=== PATIENT | female | born 1940 | race Caucasian/White ===

== ENCOUNTER 2017-11-28 16:01 | Emergency (ER) | payer MEDICARE ==
[2017-11-28] MEDS ORDERED: Ondansetron ODT TAB* 4 MG PO ONE (16:31)
[2017-11-28 17:43] LABS: ABS Basophils 0.1 10^3/ul (0-0.2); ABS Eosinophils 0.3 10^3/ul (0-0.6); ABS Lymphocytes 2.3 10^3/ul (1.0-4.8); ABS Monocytes 0.5 10^3/ul (0-0.8); ABS Neutrophils 4.4 10^3/ul (1.5-7.7); ABS Nucleated RBC 0 10^3/ul; Eosinophil % 3.6 % (0-6); Hematocrit 37 % (35-47); Lymphocyte % 30.1 % (25-47); Mean Corpuscular HGB Conc 35 g/dl (31-36); Mean Corpuscular Hemoglobin 31 pg (27-31); Mean Corpuscular Volume 88 fL (80-97); Mean Platelet Volume 8.5 um3 (7.4-10.4); Nucleated Red Blood Cells % 0.1; Platelet Count 276 10^3/ul (150-450); Red Blood Count 4.24 10^6/ul (4.0-5.4); Red Cell Distribution Width 14 % (10.5-15); White Blood Count 7.5 10^3/ul (3.5-10.8)
--- NOTE | 2017-11-28 17:50 | RAD ---
Indication: Confusion, memory loss. CT of the brain was performed without IV contrast. Ventricular structures are midline. No midline shift is noted. The extra-axial spaces are unremarkable. There is no evidence of intracranial mass or no other high or low density lesions are identified. Mastoid air cells and paranasal sinuses are otherwise unremarkable. IMPRESSION: No intracranial mass or hemorrhage is noted.
[2017-11-28 17:53] LABS: INR 0.97 (0.77-1.02)
[2017-11-28 18:01] LABS: EGFR Non-African American 70.8 (>60)
[2017-11-28 18:27] LABS: Urine Appearance Clear; Urine Blood Negative (Negative); Urine Color Straw; Urine Ketones Negative (Negative); Urine Protein Negative (Negative); Urine Specific Gravity 1.004 (1.010-1.030); Urine Urobilinogen Negative (Negative)
[2017-11-28 18:59] VITALS: BP 137/68
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
== END 2017-11-28 18:57 | disposition home or self-care (01) ==
LOC: ED 16:01
DX: R41.82 Altered mental status, unspecified (principal); I10 Essential (primary) hypertension; R11.0 Nausea; E11.9 Type 2 diabetes mellitus without complications; Z79.84 Long term (current) use of oral hypoglycemic drugs; E03.9 Hypothyroidism, unspecified; J45.909 Unspecified asthma, uncomplicated; G43.909 Migraine, unspecified, not intractable, without status migrainosus; F41.9 Anxiety disorder, unspecified; Z88.0 Allergy status to penicillin; Z88.8 Allergy status to other drugs, medicaments and biological substances; Z82.49 Family history of ischemic heart disease and other diseases of the circulatory system; Z80.3 Family history of malignant neoplasm of breast
CPT/HCPCS: 36415; 70450; 80053; 80307; 80320; 81003; 83605; 84484; 85025; 85610; 85730; 93005; 99283; A9270-GY; G0480

== ENCOUNTER 2017-12-07 21:56 | Inpatient (IN) | payer MEDICARE ==
[2017-12-07] MEDS ORDERED: NS 0.9% 1000 ML* 1,000 ML IV ONE (22:49)
[2017-12-07 23:02] LABS: ABS Basophils 0.1 10^3/ul (0-0.2); ABS Eosinophils 0.4 10^3/ul (0-0.6); ABS Monocytes 0.7 10^3/ul (0-0.8); ABS Neutrophils 5.2 10^3/ul (1.5-7.7); ABS Nucleated RBC 0 10^3/ul; Eosinophil % 4.3 % (0-6); Hematocrit 37 % (35-47); Hemoglobin 12.8 g/dl (12.0-16.0); Lymphocyte % 31.9 % (25-47); Mean Corpuscular HGB Conc 35 g/dl (31-36); Mean Corpuscular Hemoglobin 30 pg (27-31); Mean Corpuscular Volume 88 fL (80-97); Mean Platelet Volume 8.7 um3 (7.4-10.4); Nucleated Red Blood Cells % 0; Platelet Count 252 10^3/ul (150-450); Red Blood Count 4.23 10^6/ul (4.00-5.40); Red Cell Distribution Width 14 % (10.5-15); White Blood Count 9.4 10^3/ul (3.5-10.8)
[2017-12-07] MEDS: NS 0.9% 1000 ML* 1,000 ML IV SCH (23:05)
[2017-12-07 23:19] LABS: EGFR Non-African American 90.2 (>60)
--- NOTE | 2017-12-07 23:23 | ED ---
Substance Abuse/Use - HPI Summary HPI Summary: Patient with a history of undiagnosed chronic memory loss starting this year, was brought in by wnrpnpcy-ox-glv for having taken 4-5 days of her mid day dose of metformin 500 mg and amlodipine 10 mg at 8:30 PM tonight. Patient lives alone and her meds are usually administered by czdahiwq-sg-svf. Daughter-in- law states she gave the patient her daily a.m. and midday meds today, and then came back to the house to discover the patient had taken the next 4-5 days of her midday dose medications. Patient herself has no complaints at this time other than feeling tired. Denies SI. - History Of Current Complaint Chief Complaint: EDOverdose Stated Complaint: POSSIBLE OVERDOSE Time Seen by Provider: 12/07/17 22:34 Hx Obtained From: Patient, Family/Open Winder Hx From Patient Unobtainable Due To: Other Ingestion History: Type/Name Of Drug, Amount Ingested, Approximate Time Of Ingestion Overdose Characteristics: Oral - Allergies/Home Medications Allergies/Adverse Reactions: Allergies Allergy/AdvReac Type Severity Reaction Status Date / Time Penicillins Allergy GI Upset Verified 12/07/17 22:16 providone(betatdine) Allergy Rash Uncoded 12/07/17 22:16 Home Medications: Home Medications LevoCETirizine TAB (NF) [Xyzal TAB (NF)] 5 mg PO QPM 12/07/17 [History Confirmed 12/07/17] PMH/Surg Hx/FS Hx/Imm Hx Endocrine/Hematology History: Reports: Hx Diabetes, Hx Thyroid Disease - Hypothyroid Denies: Hx Anticoagulant Therapy Cardiovascular History: Reports: Hx Hypertension Denies: Hx Myocardial Infarction, Hx Pacemaker/ICD Respiratory History: Reports: Hx Asthma, Hx Pneumonia Sensory History: Reports: Hx Contacts or Glasses Denies: Hx Hearing Aid Opthamlomology History: Reports: Hx Contacts or Glasses Neurological History: Reports: Hx Migraine, Other Neuro Impairments/Disorders - vertigo, PTSD (per daughter in law) Denies: Hx CVA, Hx Headaches, Hx Peripheral Neuropathy, Hx Transient Ischemic Attacks (TIA) Psychiatric History: Reports: Hx Anxiety Denies: Hx Depression, Hx Panic Disorder - Surgical History Surgery Procedure, Year, and Place: 1963- . BENIGN TUMOR REMOVED- RIGHT BREAST. 2000- GALLBLADDER. BIOPSY OF GROWTH IN GROIN. TUBAL LIGATION Hx Anesthesia Reactions: No - Immunization History Date of Tetanus Vaccine: within last 10 years Date of Influenza Vaccine: 2014 Infectious Disease History: No Infectious Disease History: Denies: Traveled Outside the [place] in Last 30 Days - Family History Known Family History: Positive: Cardiac Disease - father, Other - breast CA Family History: No FHx of malignant hypothermia - Social History Lives: Alone Alcohol Use: None Hx Substance Use: No Substance Use Type: Reports: None Hx Tobacco Use: No Smoking Status (MU): Never Smoked Tobacco Review of Systems Positive: Fatigue Eyes: Negative ENT: Negative Cardiovascular: Negative Respiratory: Negative Gastrointestinal: Negative Genitourinary: Negative Musculoskeletal: Negative Skin: Negative Neurological: Negative Psychological: Normal All Other Systems Reviewed And Are Negative: Yes Physical Exam - Summary Physical Exam Summary: Patient alert, responsive questions appropriately. No apparent distress. Triage Information Reviewed: Yes Vital Signs On Initial Exam: Initial Vitals Temp Pulse Resp BP Pulse Ox 96.9 F 73 15 145/69 98 12/07/17 21:58 12/07/17 21:58 12/07/17 21:58 12/07/17 21:58 12/07/17 21:58 Vital Signs Reviewed: Yes Appearance: Positive: Well-Appearing Skin: Positive: Warm Head/Face: Positive: Normal Head/Face Inspection Eyes: Positive: Normal Neck: Positive: Supple Respiratory/Lung Sounds: Positive: Clear to Auscultation Cardiovascular: Positive: Normal Abdomen Description: Positive: Nontender Musculoskeletal: Positive: Normal Neurological: Positive: Normal Psychiatric: Positive: Normal AVPU Assessment: Alert - [place] Coma Scale Best Eye Response: 4 - Spontaneous Best Motor Response: 6 - Obeys Commands Best Verbal Response: 5 - Oriented Coma Scale Total: 15 Diagnostics - Vital Signs Vital Signs Temp Pulse Resp BP Pulse Ox 12/07/17 22:53 70 12 126/63 95 12/07/17 22:23 74 13 143/70 97 12/07/17 21:58 96.9 F 73 15 145/69 98 - Laboratory Lab Results: Lab Results 12/07/17 12/07/17 Range/Units 22:32 22:50 WBC 9.4 (3.5-10.8) 10^3/ul RBC 4.23 (4.00-5.40) 10^6/ul Hgb 12.8 (12.0-16.0) g/dl Hct 37 (35-47) % MCV 88 (80-97) fL MCH 30 (27-31) pg MCHC 35 (31-36) g/dl RDW 14 (10.5-15) % Plt Count 252 (150-450) 10^3/ul MPV 8.7 (7.4-10.4) um3 Neut % (Auto) 55.2 (38-83) % Lymph % (Auto) 31.9 (25-47) % Amador % (Auto) 7.7 H (0-7) % Eos % (Auto) 4.3 (0-6) % Baso % (Auto) 0.9 (0-2) % Absolute Neuts (auto) 5.2 (1.5-7.7) 10^3/ul Absolute Lymphs (auto) 3.0 (1.0-4.8) 10^3/ul Absolute Monos (auto) 0.7 (0-0.8) 10^3/ul Absolute Eos (auto) 0.4 (0-0.6) 10^3/ul Absolute Basos (auto) 0.1 (0-0.2) 10^3/ul Absolute Nucleated RBC 0 10^3/ul Nucleated RBC % 0 POC Glucose (mg/dL) 84 (70-100) mg/dL Result Diagrams: 12/07/17 22:50 12/07/17 22:50 Lab Statement: Any lab studies that have been ordered have been reviewed, and results considered in the medical decision making process. - EKG 1 Cardiac Rate: NL EKG Rhythm: Sinus Rhythm ST Segment: Normal Ectopy: None Course/Dx - Course Course Of Treatment: Patient with a history of undiagnosed chronic memory loss starting this year, was brought in by mamvmhfb-lk-pwm for having taken 4-5 days of her mid day dose of metformin 500 mg and amlodipine 10 mg at 8:30 PM tonight. Patient lives alone and her meds are usually administered by daughter- in-law. Lewywjwk-rg-rtf states she gave the patient her daily a.m. and midday meds today, and then came back to the house to discover the patient had taken the next 4-5 days of her midday dose medications. Patient herself has no complaints at this time other than feeling tired. Denies SI. Patient alert, responsive questions appropriately. No apparent distress. Vital signs within normal limits and stable. Poison control consulted and recommends admission for 24-hour observation, repeat labs and EKG every 6 hours. - Diagnoses Provider Diagnoses: Accidental medication overdose - Physician Notifications Discussed Care Of Patient With: Lorraine Melendez Time Discussed With Above Provider: 23:29 Instructed by Provider To: Admit As Observation Discharge - Sign-Out/Discharge Documenting (check all that apply): Discharge/Admit/Transfer - Discharge Plan Condition: Stable Disposition: ADMITTED TO [facility] Referrals: Ulises BANGURA,Fernanda Singh [Primary Care Provider] - - Billing Disposition and Condition Condition: STABLE Disposition: Admitted to [facility]
[2017-12-07 23:41] LABS: Urine Appearance Clear; Urine Blood Negative (Negative); Urine Color Colorless; Urine Ketones Negative (Negative); Urine Protein Negative (Negative); Urine Specific Gravity 1.002 (1.010-1.030); Urine Urobilinogen Negative (Negative)
[2017-12-07] MEDS ORDERED: Acetaminophen TAB* 325 MG PO PRN (23:59)
[2017-12-07] MEDS ORDERED: Docusate CAP* 100 MG PO PRN (23:59)
[2017-12-07] MEDS ORDERED: Al Hydrox/Mg Hydrox/Simet LIQ* 30 ML UDC PO PRN (23:59)
[2017-12-07] MEDS ORDERED: Senna TAB PO PRN (23:59)
[2017-12-07] MEDS ORDERED: Ondansetron 40 MG VIAL* 2 MG/ML 20 ML VIAL IV PRN (23:59)
[2017-12-08] MEDS ORDERED: Dextrose 50% Syringe 50 ML* 25 GM/50 ML SYRINGE IV PUSH PRN (00:17)
[2017-12-08] MEDS: Mirtazapine TAB* 15 MG PO SCH ×2 (01:26→19:58)
[2017-12-08] MEDS: NS 0.9% 1000 ML* 1,000 ML IV SCH ×3 (01:26→17:13)
[2017-12-08] MEDS ORDERED: Magnesium Oxide TAB* 400 MG PO ONE (01:52)
[2017-12-08] MEDS ORDERED: NS 0.9% 1000 ML* 1,000 ML IV ONE (03:55)
--- NOTE | 2017-12-08 04:10 | HP ---
CC: Fernanda Montgomery MD * HISTORY AND PHYSICAL: DATE OF ADMISSION: 12/07/17 TIME OF EVALUATION: 2300. PRIMARY CARE PHYSICIAN: Fernanda Montgomery MD CHIEF COMPLAINT: Overdose. HISTORY OF PRESENT ILLNESS: This is a 77-year-old female with a past medical history of dementia who presented to the emergency room after taking 4 days' worth of several of her medications. The son and daughter are at the bedside, who provide the history. They states that she has been on a decline with her mental status and cognition and she is being evaluated for dementia. She has an appointment in December at [facility] to get further evaluated for dementia. The fuvxzxwz-jh-mkz has been staying with her and helping her with her meals and supervision. The slmbkxda-vw-zyv and son went to go to grocery store and when they returned, the patient had locked them out and they noted that 4 days' worth of her midday pills were gone. The patient states she got confused and she thought she needed to take them. It appears that the patient took 5 tablets of 75 mcg of levothyroxine, 4 tabs of 850 mg of metformin and 4 tabs of 5 mg of amlodipine. Poison Control was called and they recommended observation admission. The patient denies any pain. She denies any shortness of breath, no lightheadedness, no nausea, vomiting, diarrhea. The patient states she did not realize she took so many. The qxzrjlnt-sa-ieh states that she has been doing really well with the medicines and keeping track of them, they did not think that this would occur. The patient is not able to express her needs, but she does not have incontinence. She has been losing weight with decrease in appetite. No falls. She ambulates independently. Recent changes in her medications were she was started on Xyzal on 12/05/17 for allergies and postnasal drip. In the emergency room, the patient had labs, EKG and was referred to the hospitalist service for further evaluation. PAST MEDICAL HISTORY: Cataracts, dementia, hypothyroidism, vertigo, PTSD, diabetes, hyperlipidemia, GERD, allergies, asthma. PAST SURGICAL HISTORY: , cholecystectomy and tubal ligation. MEDICATIONS: 1. Metformin 850 mg p.o. t.i.d. with meals. 2. Amlodipine 10 mg p.o. daily. 3. Januvia 100 mg p.o. daily. 4. Zoloft 50 mg p.o. daily. 5. Omeprazole 40 mg p.o. daily. 6. Singulair 2 mg p.o. daily. 7. Remeron 30 mg p.o. at bedtime. 8. Metoprolol 50 mg p.o. b.i.d. 9. Synthroid 75 mcg daily in the morning. 10. Xyzal 5 mg p.o. in the evening. 11. Diazepam 10 mg p.o. 4 times a day as needed. 12. Fiorinal 1 cap daily as needed. 13. Lipitor 10 mg daily. ALLERGIES: PENICILLIN and Betadine. FAMILY HISTORY: Reviewed and noncontributory. SOCIAL HISTORY: The patient lives normally alone, but her mocjtnru-fm-lnu has been staying with her for the past several weeks due to her increase in confusion and cognitive decline. No history of smoking, alcohol or illicit drug use. Her healthcare proxy is her son, Nitish Crenshaw. When addressed code status, they were not ready to discuss this. I gave them the MOLST form that they are going to review with the family and the primary care provider. REVIEW OF SYSTEMS: A 14-point review of systems as mentioned in the HPI, otherwise negative. PHYSICAL EXAMINATION GENERAL: No acute distress. Resting comfortably with her son and daughter-in- law at the bedside. VITAL SIGNS: Temp 96.9, pulse rate 67, respiratory rate 12, oxygen saturation 95 % on room air, blood pressure 145/62. HEENT: Head normocephalic. Pupils are equal and reactive, anicteric. Oropharynx: Mucous membranes are moist. RESPIRATORY: Clear to auscultation. No wheezing, rhonchi or rales. CARDIAC: Regular rate and rhythm. Soft systolic murmur heard throughout. ABDOMEN: Soft, nontender, nondistended. EXTREMITIES: No clubbing, cyanosis or edema. +2 DPs. NEUROLOGIC: The patient is alert and oriented x2, oriented to self and place. No gross focal neurologic deficits. Negative pronator drift. DIAGNOSTIC STUDIES/LAB DATA: White count 9.4, hemoglobin 12.8, hematocrit 37, platelets 252. Sodium 131, potassium 4, chloride 97, bicarb 23, BUN 12, creatinine 0.64, glucose 88, lactic acid 2.1, CRP of 24, albumin is 4.2. Urine is unremarkable. Toxicology is negative for salicylate, alcohol, positive for barbiturates and benzodiazepines. Radiographic data: EKG shows sinus rhythm with a prolonged NM interval, first- degree heart block and QTc of 434. ASSESSMENT: This is a 77-year-old female with a past medical history of dementia who presents to the emergency department after accidentally ingesting 4 days' worth of her midday pills. Accidental overdose ingestion. Assessment: The patient has no signs of instability. Her labs are within normal range as well as her vitals. Poison Control recommended observation on telemetry and repeating her labs and EKG in the morning. I discussed it is possible the Xyzal contributed to this, but most likely the decline with her dementia. They also mentioned her choking on her metformin pill. I discussed checking hemoglobin A1c and may be cutting back on the metformin or discontinuing it altogether and discussing crushing the pill. Plan: Admit to the CDU unit on telemetry. We will repeat an EKG in the morning and labs in the morning. CHRONIC MEDICAL PROBLEMS: 1. Hypothyroidism. In the setting of just taking several pills of Synthroid, we will hold her medication, check a TSH. 2. Hypertension. We will hold her amlodipine. We will continue her metoprolol in the morning as her blood pressures appear within the normal range. 3. Diabetes. As mentioned, we will hold her metformin and Januvia. We will check her blood glucose q.4 hours in the setting of taking several metformin pills and place her on lispro sliding scale. We will continue her on her Zoloft , Prilosec, Singulair, Remeron and Lipitor. 4. FEN: Placed the patient on a regular diet. 5. DVT prophylaxis: The patient scores high risk, placed her on heparin subcu t.i.d. 6. Code status: Full code for now. I discussed the MOLST form and they are going to review and follow up with their primary care provider, which should be addressed. PATIENT TIME: Greater than 50 minutes were spent doing history and physical, more than half time was spent in direct patient contact. [id number]/CPS #: [id number] MTDD
--- NOTE | 2017-12-08 04:18 | PN ---
Progress Note - Progress Note Date of Service: 12/08/17 Note: Patient appeared to have a vasovagal episode after having BM. Diaphoretic and bradycardic. Glucose normal. Vitals stable. Returned to bed without issue. EKG NSR - no change. Will get her AM labs now. Patient asymptomatic.
[2017-12-08 04:37] LABS: EGFR Non-African American 76.3 (>60)
[2017-12-08] MEDS ORDERED: Magnesium Sulfate 2 GM IV* 2 GM/50 ML BAG IVPB ONE (04:44)
[2017-12-08] MEDS: Heparin VIAL(*) 5000 UNITS/ML VIAL (FIVE THOUSAND) SUBCUT SCH ×3 (05:32→19:59)
[2017-12-08] MEDS ORDERED: Metoprolol Tartrate TAB* 50 mg PO SCH (09:00)
[2017-12-08] MEDS: Insulin LISPRO* 1 UNITS UNIT SUBCUT SCH ×3 (09:24→17:15)
[2017-12-08] MEDS: Nystatin TOP POWDER* 15 GM BTL TOPICAL SCH ×2 (09:36→22:59)
[2017-12-08] MEDS: Metoprolol Tartrate TAB* 50 mg PO SCH ×2 (09:36→20:01)
[2017-12-08] MEDS: Montelukast Sodium TAB* 10 MG PO SCH (09:36)
[2017-12-08] MEDS: Atorvastatin* 10 MG TAB PO SCH (09:36)
[2017-12-08] MEDS: Omeprazole CAP* 20 MG PO SCH (09:36)
[2017-12-08] MEDS: Sertraline* 50 MG TAB PO SCH (09:36)
--- NOTE | 2017-12-08 18:55 | PN ---
Hospitalist Progress Note Date of Service: 12/08/17 Pt seen and examined. Meds and labs reviewed. ROS: Denied LEWIS/dizziness, F/C, N/V, CP, SOB, increased cough, sputum production , abd pain, diarrhea, constipation, dysuria, myalgias, arthralgias, throat pain , and new skin lesions. The rest of the 14 point ROS are unremarkable. PHYSICAL EXAM: GEN APPEARANCE: Awake, not in acute distress HEENT: NC/AT, PERRLA, moist oral mucosa, (-) throat erythema NECK: Soft, supple, (-) cervical LAD, (-)JVD HEART: S1S2 WNL, RRR, No MRG CHEST: CTA, BL, GAE, No W/R/R ABD: Soft, ND/NT, NABS 4x Q EXT: No C/C/E SKIN: Warm to touch PSYCH: No active psychosis, hallucinations, depression, SI/HI ASSESSMENT AND PLAN: #Vasovagal episode : -No recurrence reported -Will continue watchful waiting #Hypomagnesemia: -Corrected -Will continue to follow #Hypothyroid: -Continue to hold Levothyroxine -TSH is normal #Accidental OD: -No O/N issues and no other reports of vasovagal episode by pt -Continue watchful waiting #HTN: -Continue current regimen #Dispo: -For PT eval -For Orthostatic VS in AM
[2017-12-08] MEDS ORDERED: Mirtazapine TAB* 15 MG PO SCH (21:00)
[2017-12-09] MEDS: NS 0.9% 1000 ML* 1,000 ML IV SCH ×3 (00:20→15:31)
[2017-12-09 05:38] LABS: ABS Basophils 0 10^3/ul (0-0.2); ABS Eosinophils 0.2 10^3/ul (0-0.6); ABS Lymphocytes 1.8 10^3/ul (1.0-4.8); ABS Monocytes 0.5 10^3/ul (0-0.8); ABS Neutrophils 4.2 10^3/ul (1.5-7.7); ABS Nucleated RBC 0 10^3/ul; Eosinophil % 2.4 % (0-6); Hematocrit 34 % (35-47); Hemoglobin 11.6 g/dl (12.0-16.0); Lymphocyte % 27.1 % (25-47); Mean Corpuscular HGB Conc 34 g/dl (31-36); Mean Corpuscular Hemoglobin 31 pg (27-31); Mean Corpuscular Volume 89 fL (80-97); Mean Platelet Volume 8.9 um3 (7.4-10.4); Nucleated Red Blood Cells % 0; Platelet Count 231 10^3/ul (150-450); Red Blood Count 3.82 10^6/ul (4.00-5.40); Red Cell Distribution Width 14 % (10.5-15); White Blood Count 6.6 10^3/ul (3.5-10.8)
[2017-12-09 05:53] LABS: EGFR Non-African American 88.6 (>60)
[2017-12-09] MEDS: Heparin VIAL(*) 5000 UNITS/ML VIAL (FIVE THOUSAND) SUBCUT SCH ×2 (05:59→13:01)
[2017-12-09] MEDS: Insulin LISPRO* 1 UNITS UNIT SUBCUT SCH ×3 (07:50→18:23)
[2017-12-09] MEDS: Atorvastatin* 10 MG TAB PO SCH (08:02)
[2017-12-09] MEDS: Sertraline* 50 MG TAB PO SCH (08:02)
[2017-12-09] MEDS: Montelukast Sodium TAB* 10 MG PO SCH (08:02)
[2017-12-09] MEDS: Omeprazole CAP* 20 MG PO SCH (08:02)
[2017-12-09] MEDS: Metoprolol Tartrate TAB* 50 mg PO SCH (08:02)
[2017-12-09] MEDS: Nystatin TOP POWDER* 15 GM BTL TOPICAL SCH (08:11)
[2017-12-09 16:08] LABS: Urine Appearance Cloudy; Urine Blood 3+ (Negative); Urine Color Yellow; Urine Ketones Negative (Negative); Urine Protein Negative (Negative); Urine Specific Gravity 1.003 (1.010-1.030); Urine Urobilinogen Negative (Negative)
[2017-12-09] MEDS ORDERED: CMCS Cefdinir cap (NF) 300 MG CAP PO ONE (17:00)
--- NOTE | 2017-12-09 17:28 | PN ---
Work Excuse - Work Note Work Note: To whom it may concern, Mrs. Gricelda Crenshaw has been evaluated on 12/09/17. The physician has instructed the patient concerning further work and/or outside activities and commitments as described below. Mrs. Crenshaw was admitted to our facility on 12/07/17 and required a two-day observation stay. However, given her decompensated state and current well-being , she has been advised to rest at home with only mild activities for a period of two weeks. At which point, her Primary care physician can then decide upon re-evaluation if she is safe to travel and/or be exposed to the pressures of the outside world. [] Rodrigo Sosa MD [id number]/09/[id number]
[2017-12-09 18:25] VITALS: BP 132/58
[2017-12-10] MEDS ORDERED: Cefpodoxime (NF) 200 MG TAB PO SCH (09:00)
--- NOTE | 2017-12-10 09:03 | DS ---
ADDENDUM NOW INCLUDED ON THIS REPORT CC: Dr. Melendez; Dr. Phillip Benites; Dr. Fernanda Montgomery * DISCHARGE SUMMARY: DATE OF ADMISSION: DATE OF DISCHARGE: DISCHARGE DIAGNOSES: As follows: 1. Accidental overdose causing vasovagal pre-syncope and/or dizziness. 2. Hypomagnesemia. 3. History of hypothyroidism. HISTORY OF PRESENT ILLNESS/HOSPITAL COURSE: The patient is a 77-year-old lady with history of hypothyroidism and diabetes, who presented to the emergency room on 12/07/17 after taking 4 days worth of several of her medications. The son and daughter were at bedside, who provided the history. In total, the patient stated that she got confused and she thought that she needed to take the extra medications that she thought has not taken. It appears that the patient took 5 tablets of 75 mcg of levothyroxine, 4 tabs of 850 mg of metformin, and 4 tabs of 5 mg of amlodipine. Poison control was then called and they recommended observation admission and conservative management. The patient was placed on IV fluids and was monitored. During the night of her admission, she went to the bathroom and has had some dizziness while performing Valsalva maneuver. Subsequent times that she would go to the bathroom, however , was otherwise unremarkable after one single event. She also was not found to be orthostatic this morning and has done well when observed walking around the hospital hallway when walked by staff. However, a few hours prior to her planned discharge, she complained of some dysuria and urinalysis was obtained by a straight cath, which suggests UTI. However, she also does not have any fevers, no white count, and hence she will be placed on antibiotics. Given the complicated course of her history, it is unclear whether this might have contributed to her recent orthostasis and hence will elect to place her on antibiotic for total of 7 days with Vantin. She had been advised to follow up with her PCP within 3 days post discharge and if she feels that her symptoms are getting worse or she is feeling unwell and have already tried to contact her PCP but could not attend to her in a timely manner to call the number given to her earlier and ask for the [facility]. She has also been informed that she will need to ask her primary care physician to check the sensitivities of the urine culture drawn prior to her discharge. She was also advised that if she has any questions after the discharge regarding her plan of care or regarding any of her prescriptions to once again call the number above while I am on service. She was also advised to hold Synthroid for two more days, then resume it and to make sure that her family members are helping around with her medications and to buy a pill lock box, which would help prevent any accidental overdose in the future. ROS: Dysuria; the rest of the 14 point ROS is unremarkable. PHYSICAL EXAMINATION: Shows a most recent vital signs of records with blood pressure of 132/58, 65 beats per minute heart rate, 16 per minute respiratory rate, saturating at 97% in room air. General Appearance: The patient is awake and not in acute distress. HEENT: Normocephalic, atraumatic, PERRLA. Extraocular muscles intact. Negative for icterus. Moist oral mucosa. Negative throat erythema. Neck is soft and supple with no cervical lymphadenopathy, no JVD. Heart: S1 and S2 within normal limits. Regular rate and rhythm. No murmurs, rubs, or gallops. Chest: Clear to auscultation bilaterally. Good air entry. No wheezes, rales, or rhonchi. Abdomen is soft, nondistended, and nontender. Normoactive bowel sounds x4. Extremities: No cyanosis, clubbing, or edema. Psychiatric: No active psychosis, depression, suicidal or homicidal ideation. TIME SPENT: The total time spent evaluating the patient, reviewing pertinent data, and appropriate documentation is greater than 30 minutes. ADDENDUM: DISCHARGE MEDICATIONS: As follows: 1. Atorvastatin 10 mg p.o. daily. 2. Cefpodoxime 200 mg p.o. q.12 for 7 more days. 3. Colace 100 mg p.o. daily. 4. Floranex tablet, 1 tablet p.o. daily for 10 days. 5. Synthroid 75 mcg p.o. q.a.m. 6. Metformin 850 mg p.o. t.i.d. with meals. 7. Metoprolol tartrate 50 mg p.o. b.i.d. 8. Mirtazapine 30 mg p.o. q.h.s. 9. Montelukast 10 mg p.o. daily. 10. Nystatin powder apply topically b.i.d. for 14 days to intertriginous areas affected. 11. Omeprazole 40 mg p.o. daily. 12. Sertraline 50 mg p.o. daily. 13. Sitagliptin 100 mg p.o. daily. [id number]/[facility] #: [id number] A- [id number]/[facility] #: [id number] [facility]
--- NOTE | 2017-12-11 11:46 | DS ---
DISCHARGE SUMMARY: ADDENDUM: DISCHARGE MEDICATIONS: As follows: 1. Atorvastatin 10 mg p.o. daily. 2. Cefpodoxime 200 mg p.o. q.12 for 7 more days. 3. Colace 100 mg p.o. daily. 4. Floranex tablet, 1 tablet p.o. daily for 10 days. 5. Synthroid 75 mcg p.o. q.a.m. 6. Metformin 850 mg p.o. t.i.d. with meals. 7. Metoprolol tartrate 50 mg p.o. b.i.d. 8. Mirtazapine 30 mg p.o. q.h.s. 9. Montelukast 10 mg p.o. daily. 10. Nystatin powder apply topically b.i.d. for 14 days to intertriginous areas affected. 11. Omeprazole 40 mg p.o. daily. 12. Sertraline 50 mg p.o. daily. 13. Sitagliptin 100 mg p.o. daily. [id number]/[facility] #: [id number] [facility]
== END 2017-12-09 19:10 | disposition home or self-care (01) | DRG 918 ==
LOC: ED 21:56 → INTOOBSV 23:59 → MEDTELE 23:59 → OBSVTOIN 23:59 → UNDOADMOB 23:59 → OBSVTOIN 12-08 14:44 → MEDTELE 12-08 14:44
PROVIDERS: ADMIT Pediatrics; ATTEND Student in an Organized Health Care Education/Training Program
DX: T38.1X1A Poisoning by thyroid hormones and substitutes, accidental (unintentional), initial encounter (principal); N39.0 Urinary tract infection, site not specified; E03.9 Hypothyroidism, unspecified; T38.3X1A Poisoning by insulin and oral hypoglycemic [antidiabetic] drugs, accidental (unintentional), initial encounter; T46.1X1A Poisoning by calcium-channel blockers, accidental (unintentional), initial encounter; I95.1 Orthostatic hypotension; R55 Syncope and collapse; E83.42 Hypomagnesemia; F43.10 Post-traumatic stress disorder, unspecified; E11.36 Type 2 diabetes mellitus with diabetic cataract; E78.5 Hyperlipidemia, unspecified; K21.9 Gastro-esophageal reflux disease without esophagitis; F03.90 Unspecified dementia, unspecified severity, without behavioral disturbance, psychotic disturbance, mood disturbance, and anxiety; J45.909 Unspecified asthma, uncomplicated; G43.909 Migraine, unspecified, not intractable, without status migrainosus; F41.9 Anxiety disorder, unspecified; R40.2362 Coma scale, best motor response, obeys commands, at arrival to emergency department; R40.2142 Coma scale, eyes open, spontaneous, at arrival to emergency department; R40.2252 Coma scale, best verbal response, oriented, at arrival to emergency department; Y92.9 Unspecified place or not applicable; Z79.84 Long term (current) use of oral hypoglycemic drugs; Z90.49 Acquired absence of other specified parts of digestive tract; Z98.51 Tubal ligation status; Z88.0 Allergy status to penicillin; Z88.1 Allergy status to other antibiotic agents; Z87.01 Personal history of pneumonia (recurrent); Z82.49 Family history of ischemic heart disease and other diseases of the circulatory system; Z80.3 Family history of malignant neoplasm of breast
CPT/HCPCS: 36415; 80048; 80053; 80307; 80320; 80329; 81003; 81015; 83036; 83605; 83735; 84443; 85025; 86140; 87086; 93005; 99284; A9270-GY; G0378; G0480; G8978-GP-CJ; G8979-GP-CI; J1644; J3475